=== PATIENT | male | born 1965 | race Caucasian/White ===

== ENCOUNTER → 2017-06-17 | Outpatient (CLI) | payer OTHER ==
--- NOTE | 2017-06-17 21:37 | DRAGON STRESS TEST REPORT ---
Exercise EKG treadmill stress test. Data procedure: 06/17/2017. Ordering Provider: Dr. Doroteo Maria. Patient Status: Out Patient Indication: Chest Pain. Coronary risk factors: Age, diabetes mellitus, family history of coronary artery disease, and hyper cholesterolemia.. Significant physical findings prior to stress testing show a blood pressure of 149/94 and a heart rate of 65 beats per minute. Auscultation of the heart shows normal S1 and S2.NoS3 or S4 gallops. Systolic murmur in the left sternal border and apex. Lungs are clear to auscultation and percussion. Resting 12-lead EKG: Sinus Rhythm. Within Normal Limits. Procedure: The patient was excised on a standard Micheal protocol. . The patient walked a total of 9 minutes and 03 seconds on this protocol and reached a peak heart rate of 148 beats per minute, which is a 88% of maximum predicted heart rate for age. This is at a workload of 10.10 METS . The test was stopped because of target heart rate of 83% of maximum predicted heart rate exceeded. The patient described no symptoms of chest pain/discomfort. Exercise EKG's show:. There is no EKG evidence of exercise-induced myocardial ischemia by EKG criteria. Arrhythmias seen:None. The blood pressure response was normal. At peak exercise the blood pressure was 196/94 millimeters of Hg. The double product was 29.0 k. Summary of findings and interpretation: 1. No chest pain or chest discomfort symptoms reproduced. 2. No EKG evidence of ischemia in the form of ST segment depression. 3. Normal blood pressure response. 4. No arrhythmias seen. 5. Good exercise tolerance, good aerobic capacity. Diagnostic treadmill stress test negative for ischemia by EKG criteria. Recommendations: Aggressive risk factor modification, and treatment of underlying co-morbidities. Note that the patient gives a history of nighttime rapid palpitations of his heart. Hence he might need a workup of this with an echocardiogram and event monitor or a 24-hour Holter monitor. This is been discussed with Dr. Maria. CARON
== END ==
LOC: SP 08:47
PROVIDERS: ATTEND Internal Medicine
DX: R07.2 Precordial pain (principal); E78.00 Pure hypercholesterolemia, unspecified; E11.9 Type 2 diabetes mellitus without complications; Z82.49 Family history of ischemic heart disease and other diseases of the circulatory system
CPT/HCPCS: 93017